=== PATIENT | male | born 1950 | race African-American/Black ===

== ENCOUNTER 2023-10-27 23:54 | Emergency (ER) | payer OTHER, MEDICAID ==
[~2023-10-27] VITALS: Ht 172.7 cm; Wt 77.0 kg
[~2023-10-27 23:54] MED LIST: ASPI-867 MT; ATOR10TA MT; BENZ1TAB79 PO; LISI20TA31 MT; METF-414 MT; NITR0.4T49 SL; RISP2 PO
[2023-10-28 00:02] VITALS: TEMP 98.3; O2SAT 99
[2023-10-28] MEDS: ACETAMINOPHEN 325MG TABLET PO STA (00:42)
[2023-10-28 00:59] LABS: BASOPHILS % 0.5 % (0.0-2.0); EOSINOPHILS % 1.1 % (0.0-5.0); HEMATOCRIT. 38.4 % (42.0-52.0); HEMOGLOBIN. 12.6 g/dL (14.0-18.0); LYMPHOCYTES % 33.3 % (20.0-50.0); MEAN CORPUSCULAR HEMOGLOBIN 28.9 pg (28.0-32.0); MEAN CORPUSCULAR HGB CONC 32.8 g/dL (31.0-37.0); MEAN PLATELET VOLUME 7.3 fl (7.4-10.4); MONOCYTES % 4.8 % (2.0-8.0); NEUTROPHILS % 60.3 % (40.0-76.0); PLATELET 353 x1000/uL (130-400); RED BLOOD CELL COUNT 4.37 mill/uL (4.7-6.1); RED CELL DISTRIBUTION WIDTH 16.9 % (11.6-14.6)
[2023-10-28 01:04] LABS: CARBON DIOXIDE 24 mEq/L (21-32); CHLORIDE 103 mEq/L (98-107); POTASSIUM 3.6 mEq/L (3.5-5.1); SODIUM 136 mEq/L (136-145)
[2023-10-28 01:09] LABS: GLUCOSE 106 mg/dL (70-105)
[2023-10-28 01:10] LABS: TROPONIN I HIGH SENSITIVITY 7 ng/L (3.0-53); UREA NITROGEN BLOOD 9 mg/dL (9-23)
[2023-10-28 01:11] LABS: ALANINE AMINOTRANSFERASE 8 IU/L (10-49)
[2023-10-28 01:12] LABS: ALBUMIN 3.9 g/dL (3.2-4.8); ASPARTATE AMINOTRANSFERASE 19 IU/L (<34); BILIRUBIN TOTAL 0.4 mg/dL (0.1-1.0); PROTEIN TOTAL 7.6 g/dL (6.0-8.3)
[2023-10-28 02:20] LABS: D-DIMER 1.26 mg/L FEU (<0.50); PROTHROMBIN TIME 10.9 sec (9.6-11.0)
[2023-10-28 02:58] LABS: TROPONIN I HIGH SENSITIVITY 11 ng/L (3.0-53)
[2023-10-28 04:45] VITALS: BP 125/71; PULSE 63; RESP 20
[2023-10-28] MEDS: ASPIRIN 325MG EC TABLET PO NR (05:42)
== END 2023-10-28 06:19 | disposition left against medical advice (07) ==
LOC: ER 10-28 00:11
DX: R07.89 Other chest pain (principal); E11.9 Type 2 diabetes mellitus without complications; I10 Essential (primary) hypertension; F20.9 Schizophrenia, unspecified
CPT/HCPCS: 36415; 71045; 80053; 83880; 84484; 85025; 85379; 93005; 99285

== ENCOUNTER 2024-09-17 06:58 | Inpatient (IN) | payer MEDICAID, OTHER ==
[~2024-09-17] VITALS: Ht 182.9 cm; Wt 54.0 kg
[~2024-09-17 06:58] MED LIST changes: +FERR325T23 MT; +HYDR50TA40 MT
[2024-09-17 06:59] VITALS: O2SAT 96
[2024-09-17] MEDS ORDERED: LORAZEPAM 2MG/ML INJ IM ONE (07:15)
[2024-09-17] MEDS: OLANZAPINE 10 MG/VIAL IM ONE (08:02)
[2024-09-17] MEDS: LORAZEPAM 2MG/ML UD SYRINGE IM NR (08:03)
[2024-09-17 08:12] LABS: *AMPHETAMINES SCREEN URINE NEGATIVE (NEGATIVE); *BARBITURATES SCREEN URINE NEGATIVE (NEGATIVE); *BENZODIAZEPINES SCREEN URINE NEGATIVE (NEGATIVE); *COCAINE SCREEN URINE PRESUMPTIVE POSITIVE (NEGATIVE); CANNABINOID URINE SCREEN NEGATIVE (NEGATIVE); ECSTASY MDMA SCREEN URINE NEGATIVE (NEGATIVE); METHADONE URINE SCREEN NEGATIVE (NEGATIVE); OPIATES URINE SCREEN NEGATIVE (NEGATIVE); PHENCYCLIDINE URINE SCREEN NEGATIVE (NEGATIVE)
[2024-09-17 08:21] LABS: CLARITY URINE CLEAR (CLEAR); COLOR URINE YELLOW (YELLOW); GLUCOSE URINE NEGATIVE (NEGATIVE); KETONES URINE NEGATIVE (NEGATIVE); LEUKOCYTE ESTERASE URINE NEGATIVE (NEGATIVE); NITRITE URINE NEGATIVE (NEGATIVE); OCCULT BLOOD URINE NEGATIVE (NEGATIVE); PH URINE 7.5 (4.5-8.0); PROTEIN URINE NEGATIVE (NEGATIVE); SPECIFIC GRAVITY URINE 1.019 (1.005-1.030); UROBILINOGEN URINE 0.2 E.U./dL (0.2-1.0)
[2024-09-17 08:29] LABS: BASOPHILS % 0.4 % (0.0-2.0); EOSINOPHILS % 0.2 % (0.0-5.0); HEMATOCRIT. 35.8 % (42.0-52.0); HEMOGLOBIN. 11.3 g/dL (14.0-18.0); LYMPHOCYTES % 10.4 % (20.0-50.0); MEAN CORPUSCULAR HEMOGLOBIN 27.5 pg (28.0-32.0); MEAN CORPUSCULAR HGB CONC 31.6 g/dL (31.0-37.0); MEAN CORPUSCULAR VOLUME 87.1 fL (80.0-94.0); MEAN PLATELET VOLUME 8.1 fl (7.4-10.4); MONOCYTES % 5.3 % (2.0-8.0); NEUTROPHILS % 83.7 % (40.0-76.0); PLATELET 355 x1000/uL (130-400); RED BLOOD CELL COUNT 4.11 mill/uL (4.7-6.1); WHITE BLOOD COUNT 8.7 x1000/uL (4.5-11.0)
[2024-09-17 08:41] LABS: CHLORIDE 107 mEq/L (98-107); POTASSIUM 3.6 mEq/L (3.5-5.1); SODIUM 141 mEq/L (136-145)
[2024-09-17 08:42] LABS: CALCIUM 9.3 mg/dL (8.7-10.4); CARBON DIOXIDE 25 mEq/L (21-32)
[2024-09-17 08:47] LABS: CREATININE 0.7 mg/dL (0.6-1.3); GLUCOSE 107 mg/dL (70-105); UREA NITROGEN BLOOD 12 mg/dL (9-23)
[2024-09-17 08:48] LABS: ETHANOL BLOOD < 10 mg/dL (<10)
[2024-09-17] MEDS: HYDRALAZINE 20MG/ML VIAL IV NR (11:08)
[2024-09-17] MEDS ORDERED: CLONIDINE 0.1MG TABLET PO PRN (11:30)
[2024-09-17] MEDS ORDERED: ONDANSETRON HCL 4MG/2ML INJ IV PRN (11:30)
[2024-09-17] MEDS ORDERED: HYDROCODONE/ACETAMINOPHEN 5/325MG TABLET PO PRN (11:30)
[2024-09-17] MEDS ORDERED: IPRATROPIUM/ALBUTEROL 0.5-3(2.5)MG/3ML NEB NEB PRN (11:30)
[2024-09-17] MEDS ORDERED: ACETAMINOPHEN 325MG TABLET PO PRN (11:30)
[2024-09-17] MEDS ORDERED: HYDRALAZINE 20MG/ML VIAL IV PRN (11:30)
[2024-09-17] MEDS ORDERED: NALOXONE HCL 0.4MG/ML VIAL IV PRN (11:45)
[2024-09-17] MEDS: CLONIDINE 0.1MG TABLET PO PRN (11:46)
[2024-09-17] MEDS: BENZTROPINE MESYLATE 1MG TABLET PO SCH (13:55)
[2024-09-17] MEDS: RISPERIDONE 1MG TABLET PO SCH (13:55)
[2024-09-17] MEDS: PANTOPRAZOLE SODIUM 40 MG/VIAL IV SCH (13:56)
[2024-09-17] MEDS: ASPIRIN 81MG EC TABLET PO SCH (13:57)
[2024-09-17] MEDS: ENOXAPARIN 40MG/0.4ML SYR SUBCUT SCH (13:59)
[2024-09-17] MEDS: LISINOPRIL 20MG TABLET PO SCH (14:17)
[2024-09-17] MEDS: HYDRALAZINE HCL 50MG TABLET PO SCH (14:17)
[2024-09-17] MEDS: SODIUM CHLORIDE 0.9% 1,000 ML IV SCH (14:28)
[2024-09-17 16:00] VITALS: BP 129/79; PULSE 72; PULSE 77; RESP 18; RESP 22; TEMP 36.3; O2SAT 77
[2024-09-17 17:00] VITALS: BP 129/79; PULSE 72; RESP 22; TEMP 36.4
[2024-09-17 20:00] VITALS: BP 101/50; PULSE 54; RESP 18; TEMP 36.7; O2SAT 99
[2024-09-17] MEDS ORDERED: ZOLPIDEM TARTRATE 5MG TABLET PO PRN (21:00)
[2024-09-17] MEDS: ATORVASTATIN CALCIUM 10MG TABLET PO SCH (22:41)
[2024-09-18] VITALS: BP 137/82; PULSE 66; RESP 18; TEMP 36.6; O2SAT 99
[2024-09-18 04:00] VITALS: BP 142/86; PULSE 53; RESP 19; TEMP 36.7; O2SAT 99
[2024-09-18 06:57] LABS: CARBON DIOXIDE 23 mEq/L (21-32); CHLORIDE 109 mEq/L (98-107); POTASSIUM 3.6 mEq/L (3.5-5.1); SODIUM 142 mEq/L (136-145)
[2024-09-18 06:58] LABS: CALCIUM 8.5 mg/dL (8.7-10.4)
[2024-09-18 07:01] LABS: BASOPHILS % 0.8 % (0.0-2.0); EOSINOPHILS % 0.6 % (0.0-5.0); HEMATOCRIT. 36.1 % (42.0-52.0); HEMOGLOBIN. 11.6 g/dL (14.0-18.0); LYMPHOCYTES % 30.2 % (20.0-50.0); MEAN CORPUSCULAR HEMOGLOBIN 27.8 pg (28.0-32.0); MEAN CORPUSCULAR HGB CONC 32.1 g/dL (31.0-37.0); MEAN CORPUSCULAR VOLUME 86.8 fL (80.0-94.0); MEAN PLATELET VOLUME 8.1 fl (7.4-10.4); MONOCYTES % 9.1 % (2.0-8.0); NEUTROPHILS % 59.3 % (40.0-76.0); PLATELET 340 x1000/uL (130-400); RED BLOOD CELL COUNT 4.16 mill/uL (4.7-6.1); RED CELL DISTRIBUTION WIDTH 17.3 % (11.6-14.6); WHITE BLOOD COUNT 6.8 x1000/uL (4.5-11.0)
[2024-09-18 07:02] LABS: CREATININE 0.9 mg/dL (0.6-1.3)
[2024-09-18 07:03] LABS: GLUCOSE 90 mg/dL (70-105); UREA NITROGEN BLOOD 14 mg/dL (9-23)
[2024-09-18 07:33] LABS: CLARITY URINE CLOUDY (CLEAR); COLOR URINE ORANGE (YELLOW); GLUCOSE URINE NEGATIVE (NEGATIVE); KETONES URINE NEGATIVE (NEGATIVE); LEUKOCYTE ESTERASE URINE TRACE (NEGATIVE); NITRITE URINE NEGATIVE (NEGATIVE); OCCULT BLOOD URINE NEGATIVE (NEGATIVE); PH URINE 6.5 (4.5-8.0); PROTEIN URINE NEGATIVE (NEGATIVE); SPECIFIC GRAVITY URINE 1.012 (1.005-1.030); UROBILINOGEN URINE 0.2 E.U./dL (0.2-1.0)
[2024-09-18 08:00] VITALS: BP 155/81; PULSE 68; RESP 18; TEMP 36.2; O2SAT 95
[2024-09-18 08:29] LABS: *AMPHETAMINES SCREEN URINE NEGATIVE (NEGATIVE); *BARBITURATES SCREEN URINE NEGATIVE (NEGATIVE); *BENZODIAZEPINES SCREEN URINE NEGATIVE (NEGATIVE); *COCAINE SCREEN URINE PRESUMPTIVE POSITIVE (NEGATIVE); MUCUS URINE 3+ /lpf (NONE/TRACE); SQUAMOUS EPITHELIAL CELL URINE FEW /lpf (RARE/1+)
[2024-09-18 08:30] LABS: TROPONIN I HIGH SENSITIVITY 23 ng/L (3.0-53)
[2024-09-18 08:30] LABS: BACTERIA URINE 4+; CANNABINOID URINE SCREEN NEGATIVE (NEGATIVE); ECSTASY MDMA SCREEN URINE NEGATIVE (NEGATIVE); METHADONE URINE SCREEN NEGATIVE (NEGATIVE); OPIATES URINE SCREEN NEGATIVE (NEGATIVE); PHENCYCLIDINE URINE SCREEN NEGATIVE (NEGATIVE); RBC URINE 0-2 /hpf (0-2)
== END 2024-09-18 09:08 | disposition left against medical advice (07) | DRG 917 ==
LOC: ER 06:58 → EDBEDREQTM 09:44 → 5WST 09:44 → EDBEDREQ 09:44
PROVIDERS: ADMIT Internal Medicine; ATTEND Internal Medicine
DX: T43.651A Poisoning by methamphetamines accidental (unintentional), initial encounter (principal); G92.8 Other toxic encephalopathy; E11.9 Type 2 diabetes mellitus without complications; F20.9 Schizophrenia, unspecified; Z53.29 Procedure and treatment not carried out because of patient's decision for other reasons; I10 Essential (primary) hypertension
CPT/HCPCS: 36415; 71045; 80048; 80305; 80320; 81003; 82962; 84484; 85025; 99285; J0360; J1650; J2060; J2470; J3490; G0480

== ENCOUNTER 2024-11-10 12:13 | Inpatient (IN) | payer OTHER ==
[~2024-11-10] VITALS: Ht 182.9 cm; Wt 86.0 kg
[2024-11-10 12:15] VITALS: TEMP 37; O2SAT 100
[2024-11-10 13:13] LABS: BASOPHILS % 0.8 % (0.0-2.0); HEMATOCRIT. 35.8 % (42.0-52.0); HEMOGLOBIN. 11.5 g/dL (14.0-18.0); LYMPHOCYTES % 26.2 % (20.0-50.0); MEAN CORPUSCULAR VOLUME 84.2 fL (80.0-94.0); MEAN PLATELET VOLUME 7.9 fl (7.4-10.4); MONOCYTES % 7.1 % (2.0-8.0); NEUTROPHILS % 64.9 % (40.0-76.0); PLATELET 292 x1000/uL (130-400); RED BLOOD CELL COUNT 4.25 mill/uL (4.7-6.1); RED CELL DISTRIBUTION WIDTH 17.7 % (11.6-14.6)
[2024-11-10 13:16] LABS: CHLORIDE 106 mEq/L (98-107); POTASSIUM 3.9 mEq/L (3.5-5.1); SODIUM 139 mEq/L (136-145)
[2024-11-10 13:17] LABS: CARBON DIOXIDE 26 mEq/L (21-32)
[2024-11-10 13:22] LABS: GLUCOSE 106 mg/dL (70-105)
[2024-11-10 13:23] LABS: UREA NITROGEN BLOOD 15 mg/dL (9-23)
[2024-11-10 13:24] LABS: TROPONIN I HIGH SENSITIVITY 27 ng/L (3.0-53)
[2024-11-10] MEDS: MORPHINE SULFATE 4 MG/ML INJ (FOR IV/IM USE) IV ONE (15:06)
[2024-11-10 15:10] LABS: INR 1.1; PARTIAL THROMBOPLASTIN TIME 24.1 sec (23.4-31.0); PROTHROMBIN TIME 11.9 sec (9.6-11.0); TROPONIN I HIGH SENSITIVITY 31 ng/L (3.0-53)
[2024-11-10] MEDS: FUROSEMIDE 40MG/4ML VIAL IVP ONE (15:10)
[2024-11-10] MEDS ORDERED: ZOLPIDEM TARTRATE 5MG TABLET PO PRN (15:45)
[2024-11-10] MEDS ORDERED: HYDRALAZINE 20MG/ML VIAL IV PRN (15:45)
[2024-11-10] MEDS ORDERED: HYDROCODONE/ACETAMINOPHEN 5/325MG TABLET PO PRN (15:45)
[2024-11-10] MEDS ORDERED: MORPHINE SULFATE 4 MG/ML INJ (FOR IV/IM USE) IV PRN (15:45)
[2024-11-10] MEDS ORDERED: CLONIDINE 0.1MG TABLET PO PRN (15:45)
[2024-11-10] MEDS ORDERED: GUAIFENESIN 200MG/10ML SUGAR FREE UDC PO PRN (15:45)
[2024-11-10] MEDS ORDERED: ONDANSETRON HCL 4MG/2ML INJ IV PRN (15:45)
[2024-11-10] MEDS ORDERED: ACETAMINOPHEN 325MG TABLET PO PRN (15:45)
[2024-11-10] MEDS ORDERED: LORAZEPAM 2MG/ML UD SYRINGE IV PRN (15:45)
[2024-11-10] MEDS ORDERED: MAGNESIUM/ALUMINUM HYDROXIDE/SIMETHICONE 30ML UDC PO PRN (15:45)
[2024-11-10] MEDS ORDERED: IPRATROPIUM/ALBUTEROL 0.5-3(2.5)MG/3ML NEB NEB PRN (15:45)
[2024-11-10] MEDS ORDERED: NALOXONE HCL 0.4MG/ML VIAL IV PRN (16:00)
[2024-11-10] MEDS ORDERED: ENOXAPARIN 40MG/0.4ML SYR SUBCUT SCH (16:00)
[2024-11-10] MEDS ORDERED: ISOSORBIDE MONONITRATE 30MG TABLET SR 24HR PO SCH (16:00)
[2024-11-10 16:16] VITALS: BP 176/95; PULSE 67; RESP 18; O2SAT 100
[2024-11-10] MEDS ORDERED: LABETALOL HCL 100MG TABLET PO SCH (16:30)
[2024-11-10 23:48] LABS: *AMPHETAMINES SCREEN URINE NEGATIVE (NEGATIVE); *BARBITURATES SCREEN URINE NEGATIVE (NEGATIVE); *BENZODIAZEPINES SCREEN URINE NEGATIVE (NEGATIVE); *COCAINE SCREEN URINE PRESUMPTIVE POSITIVE (NEGATIVE); METHADONE URINE SCREEN NEGATIVE (NEGATIVE); OPIATES URINE SCREEN NEGATIVE (NEGATIVE)
[2024-11-10 23:49] LABS: CANNABINOID URINE SCREEN NEGATIVE (NEGATIVE); ECSTASY MDMA SCREEN URINE NEGATIVE (NEGATIVE); PHENCYCLIDINE URINE SCREEN NEGATIVE (NEGATIVE)
[2024-11-11] MEDS ORDERED: FUROSEMIDE 40MG/4ML VIAL IVP SCH (09:00)
[2024-11-11] MEDS ORDERED: PANTOPRAZOLE SODIUM 40 MG/VIAL IV SCH (09:00)
== END 2024-11-10 18:00 | disposition left against medical advice (07) | DRG 291 ==
LOC: ER 12:13 → EDBEDREQ 12:31 → 6WST 14:33 → EDBEDREQ 14:38
PROVIDERS: ADMIT Internal Medicine; ATTEND Internal Medicine
DX: I11.0 Hypertensive heart disease with heart failure (principal); J15.8 Pneumonia due to other specified bacteria; D64.9 Anemia, unspecified; E11.9 Type 2 diabetes mellitus without complications; F20.9 Schizophrenia, unspecified; F15.90 Other stimulant use, unspecified, uncomplicated; Z53.29 Procedure and treatment not carried out because of patient's decision for other reasons; I48.0 Paroxysmal atrial fibrillation; I50.9 Heart failure, unspecified; Z91.148 Patient's other noncompliance with medication regimen for other reason
CPT/HCPCS: 36415; 71045; 80048; 80305; 83880; 84484; 85025; 87426; 93005; 99291; J1940; J2270